=== PATIENT | female | born 1955 | race African-American/Black ===

== ENCOUNTER 2017-04-26 13:51 | Emergency (ER) | payer OTHER ==
--- NOTE | 2017-04-26 15:36 | RAD ---
THREE VIEWS SECOND TOE RIGHT FOOT: History: Trauma. FINDINGS: AP, lateral, and oblique views of the second digit, right foot, obtained. There is a small avulsion fracture involving the proximal dorsal aspect of the distal phalanx second digit. This extends into the articulating surface. IMPRESSION: Small avulsion fracture distal phalanx second digit right foot. POS: [facility]
== END 2017-04-26 15:10 | disposition home or self-care (01) ==
LOC: NAV ERS 13:51
DX: S92.531A Displaced fracture of distal phalanx of right lesser toe(s), initial encounter for closed fracture (principal); K21.9 Gastro-esophageal reflux disease without esophagitis; I10 Essential (primary) hypertension; F41.0 Panic disorder [episodic paroxysmal anxiety]; F17.210 Nicotine dependence, cigarettes, uncomplicated; Z79.899 Other long term (current) drug therapy; W22.03XA Walked into furniture, initial encounter

== ENCOUNTER 2017-05-30 12:05 | Outpatient (CLI) | payer OTHER ==
--- NOTE | 2017-05-30 13:35 | RAD ---
THREE VIEWS RIGHT SHOULDER: Comparison: None. History: Right shoulder pain, arthritis. FINDINGS: Three views of the right shoulder shows no evidence of acute fracture or dislocation. No degenerativ e changes are seen. No soft tissue swelling is present. There is an anastomotic staple line overlyin g the right upper lobe likely from prior lung surgery. IMPRESSION: No significant right shoulder abnormality. POS: [facility]
== END 2017-05-30 12:06 | disposition home or self-care (01) ==
LOC: NAV RAD 12:05
PROVIDERS: ATTEND Family Medicine
DX: M25.511 Pain in right shoulder (principal)

== ENCOUNTER 2017-06-05 12:07 | Outpatient (CLI) | payer OTHER ==
--- NOTE | 2017-06-05 14:28 | RAD ---
CERVICAL SPINE THREE VIEWS: Date: 06-05-17 History: Neck pain with radicular symptoms. Pain extends into the right shoulder. FINDINGS: C1 to C7 vertebral body seen on the lateral view. Cervicothoracic junction is not well imaged. Multi level degenerative changes are seen with osteophytes seen at multiple levels and intervertebral disc spaces at all levels. No obvious fracture or subluxation is seen from C1 to C7. Prevertebral soft t issues are within normal limits. Visualized lung apices demonstrate radiopaque suture material in th e bilateral upper lobes as well as a left subclavian Mediport catheter. Degenerative changes in the cervical spine have slightly progressed from prior study on 02-16-04. IMPRESSION: 1. Nonvisualization of the cervicothoracic junction. No fracture or subluxation is seen from C1 to C 7. 2. Multilevel degenerative changes. POS: [facility]
== END 2017-06-05 12:08 | disposition home or self-care (01) ==
LOC: NAV RAD 12:07
PROVIDERS: ATTEND Family Medicine
DX: M54.2 Cervicalgia (principal); M47.812 Spondylosis without myelopathy or radiculopathy, cervical region
CPT/HCPCS: 72040

== ENCOUNTER 2017-07-09 15:30 | Emergency (ER) | payer OTHER ==
[2017-07-09] MEDS ORDERED: Ketorolac Tromethamine 60 MG/2 ML VIAL ONE (15:50)
[2017-07-09] MEDS ORDERED: HYDROcodone/Acetaminophen 10/325 mg Tablet ONE (16:01)
== END 2017-07-09 16:04 | disposition home or self-care (01) ==
LOC: NAV ERS 15:30
DX: K02.9 Dental caries, unspecified (principal)
CPT/HCPCS: 96372; J1885

== ENCOUNTER 2017-07-27 12:07 | Emergency (ER) | payer OTHER ==
[2017-07-27] MEDS ORDERED: Acetaminophen 325 MG TAB ONE (12:46)
--- NOTE | 2017-07-27 14:32 | CT ---
CERVICAL SPINE CT SCAN WITHOUT IV CONTRAST: HISTORY: A 61-year-old female with a history of lung cancer and worsening neck pain. COMPARISON: 11/26/11. FINDINGS: Extensive multilevel disk-osteophytosis with multilevel variable severity canal, lateral recess, and foraminal stenosis. At C2-C3, disk-osteophytosis with some mild ventral thecal sac and lateral recess stenosis and mild f oraminal stenosis. At C3-C4, there is disk-osteophytosis with more moderate central canal and left lateral recess stenos is and bilateral foraminal stenosis. At C4-5, there is diffuse disk-osteophytosis with moderate central canal and lateral recess stenosis and bilateral foraminal stenosis. C5-6, No evidence for acute fracture or facet dislocation. IMPRESSION: Fairly extensive multilevel disk-osteophytosis with variable severity of the central canal, lateral r ecess, and foraminal stenosis as above. No acute fracture or dislocation. Consider followup nonemer gent MRI for further assessment. POS: [facility]
== END 2017-07-27 14:19 | disposition home or self-care (01) ==
LOC: NAV ERS 12:07
DX: M54.12 Radiculopathy, cervical region (principal); K02.9 Dental caries, unspecified; K21.9 Gastro-esophageal reflux disease without esophagitis; I10 Essential (primary) hypertension; F41.9 Anxiety disorder, unspecified; F17.210 Nicotine dependence, cigarettes, uncomplicated
CPT/HCPCS: 72125

== ENCOUNTER 2017-09-20 01:25 | Emergency (ER) | payer OTHER | END 2017-09-20 01:46 | disposition home or self-care (01) | LOC: NAV ERS 01:25 | DX: K59.00 Constipation, unspecified (principal); K21.9 Gastro-esophageal reflux disease without esophagitis; I10 Essential (primary) hypertension; F10.10 Alcohol abuse, uncomplicated; F41.0 Panic disorder [episodic paroxysmal anxiety]; F17.210 Nicotine dependence, cigarettes, uncomplicated | CPT/HCPCS: 99283 ==

== ENCOUNTER 2018-09-17 10:59 | Emergency (ER) | payer OTHER ==
--- NOTE | 2018-09-17 11:59 | RAD ---
3 VIEWS RIGHT WRIST: Date: 09/17/18 HISTORY: Left wrist pain. Patient denies injury. FINDINGS: No acute fracture or dislocation is seen. There is a vertically oriented lucency within the distal le ft radial metaphysis, only seen on the PA projection and is likely related to the trabecular pattern. There is a corticated osseous density adjacent to the ulnar styloid process, likely related to remot e avulsion injury. Subcutaneous soft tissue swelling is seen at the dorsal aspect of the wrist. No ot her findings. IMPRESSION: 1. No acute osseous abnormality. 2. Subcutaneous soft tissue swelling dorsal aspect of left wrist. POS: [facility]
[2018-09-17] MEDS ORDERED: predniSONE 20 MG TAB ONE (12:00)
[2018-09-17 12:22] LABS: CRP (Inflammatory) 7.14 mg/dL (= or < 0.5); Uric Acid 6.6 mg/dL (2.6-6.0)
[2018-09-17 12:25] LABS: Anion Gap 16 mmol/L (10-20); BUN (Urea Nitrogen) 9 mg/dL (9.8-20.1); Calc. Creatinine Clearance 0 mL/min (70-130); Calcium 9.7 mg/dL (7.8-10.44); Carbon Dioxide 24 mmol/L (23-31); Chloride 106 mmol/L (98-107); Estimated GFR-MDRD 52; Glucose 93 mg/dL (80-115); Potassium 3.6 mmol/L (3.5-5.1); Sodium 142 mmol/L (136-145)
[2018-09-17 12:28] LABS: Band 1 % (5-11); Hemoglobin 12.5 g/dL (12.0-16.0); Lymphocytes 19 % (21-51); MDiff Complete? YES; Mean Corpuscular HGB CONC 33.8 g/dL (32.0-36.0); Mean Corpuscular Hemoglobin 29.7 pg (27.0-31.0); Mean Corpuscular Volume 87.9 fL (78.0-98.0); Mean Platelet Volume 6.6 fL (7.4-10.4); Monocytes 5 % (0-10); Neutrophil 71 % (42-75); Platelet Count 367 thou/uL (130-400); Platelet Morphology Comment Appears Adequate; RBC Distribution Width 11.1 % (11.5-14.5); Reactive Lymphocytes 4 % (0-10); Red Blood Cell (RBC) Count 4.22 mill/uL (4.20-5.40); Target Cells SLIGHT = 2-5 cells (100X) (0-1/hpf); White Blood Cell (WBC) Count 8.5 thou/uL (4.8-10.8)
== END 2018-09-17 12:40 | disposition home or self-care (01) ==
LOC: NAV ERS 10:59
DX: M25.532 Pain in left wrist (principal); K21.9 Gastro-esophageal reflux disease without esophagitis; I10 Essential (primary) hypertension; F41.0 Panic disorder [episodic paroxysmal anxiety]; F17.210 Nicotine dependence, cigarettes, uncomplicated; Z79.899 Other long term (current) drug therapy
CPT/HCPCS: 36415; 80048; 84550; 85025; 86140; J7506

== ENCOUNTER 2019-01-07 03:58 | Emergency (ER) | payer OTHER ==
[2019-01-07 05:11] LABS: PTT 30.8 SEC (22.9-36.1)
[2019-01-07 05:12] LABS: #Basophils 0.1 thou/uL (0.0-0.2); #Lymphocytes 5.9 thou/uL (1.20-3.40); #Monocytes 0.4 thou/uL (0.11-0.59); #Neutrophils 2.9 thou/uL (1.40-6.50); %Basophils 1.1 % (0.0-1.0); %Eosinophils 0.4 % (0.0-10.0); %Lymphocytes 63.2 % (21.0-51.0); %Monocytes 3.9 % (0.0-10.0); %Neutrophils 31.5 % (42.0-75.0); Hemoglobin 13.2 g/dL (12.0-16.0); Mean Corpuscular HGB CONC 32.4 g/dL (32.0-36.0); Mean Corpuscular Hemoglobin 28.9 pg (27.0-31.0); Mean Corpuscular Volume 89.1 fL (78.0-98.0); Mean Platelet Volume 5.8 fL (7.4-10.4); Platelet Count 357 thou/uL (130-400); RBC Distribution Width 11.9 % (11.5-14.5); Red Blood Cell (RBC) Count 4.58 mill/uL (4.20-5.40); White Blood Cell (WBC) Count 9.3 thou/uL (4.8-10.8)
[2019-01-07 05:14] LABS: ALT (SGPT) 14 U/L (8-55); AST (SGOT) 20 U/L (5-34); Albumin 4.4 g/dL (3.4-4.8); Alkaline Phosphatase 76 U/L (40-150); Anion Gap 17 mmol/L (10-20); BUN (Urea Nitrogen) 15 mg/dL (9.8-20.1); Bilirubin, Total 0.2 mg/dL (0.2-1.2); Calc. Creatinine Clearance 0 mL/min (70-130); Calcium 9.4 mg/dL (7.8-10.44); Chloride 99 mmol/L (98-107); Estimated GFR-MDRD 43; Globulin 2.8 g/dL (2.4-3.5); Glucose 107 mg/dL (80-115); Potassium 3.9 mmol/L (3.5-5.1); Protein, Total 7.2 g/dL (6.0-8.3); Sodium 132 mmol/L (136-145)
[2019-01-07 05:15] LABS: Acetaminophen Less than 6.0 mcg/mL (10.0-30.0); Alcohol Less than 10 mg/dL (Less than 10); CK (CPK) 68 U/L (29-168); Salicylate Less than 8.0 mg/dL (15.0-30.0)
[2019-01-07 05:24] LABS: Carbon Dioxide 20 mmol/L (23-31)
[2019-01-07 05:27] LABS: Bilirubin Negative (Negative); Blood, Urine Small (Negative); Clarity Clear (Clear); Glucose, Urine (Dipstick) Negative (Negative); Leukocyte Negative (Negative); Nitrite Negative (Negative); Protein, Urine (Dipstick) Negative (Neg-Trace); Urobilinogen 0.2 mg/dL (0.2-1.0); pH, Urine 5.5 (5.0-9.0)
[2019-01-07 05:38] LABS: Cocaine Metabolite Screen Detected (NotDetected); Crystals/HPF 1+ AMORPH URATES HPF (Negative); Phencyclidine (PCP) Not Detected (NotDetected); RBC/HPF 0-3 HPF (0-3); THC/Cannabinoid Screen Detected (NotDetected)
[2019-01-07 05:39] LABS: Amphetamine Not Detected (NotDetected); Barbiturates Screen Not Detected (NotDetected); Benzodiazepine Screen Not Detected (NotDetected); Medtox Control Line Valid? VALID (VALID); Methadone Not Detected (NotDetected); Methamphetamine Not Detected (NotDetected); Opiate Screen Detected (NotDetected); Oxycodone Screen Not Detected (NotDetected); Tricyclic Screen Not Detected (NotDetected)
[2019-01-07] MEDS ORDERED: Dexamethasone 20 MG/5 ML VIAL ONE (05:43)
--- NOTE | 2019-01-07 07:17 | CT ---
CT BRAIN WITHOUT CONTRAST: Date: 01/07/19 INDICATION: Altered mental status with right-sided temporal head pain. Patient also having weakness with inabilit y to stand and follow directions well. COMPARISON: Prior CT brain dated 11/26/11. FINDINGS: There is a mildly hyperdense nodule now present involving the cortex of the right parietal lobe with surrounding vasogenic edema measuring 1.2 cm. Additional focal regions of subcortical vasogenic edema are seen involving the left frontal lobe on image 22 of series 3, and portions of the right frontal lobe on image 17 of series 3. There is worsening hypodensity within the periventricular white matter suspicious for changes of worsening chronic small vessel white matter ischemic change. Septum pelluci dum and third ventricle are midline. Basilar cisterns are patent. Mastoid air cells are clear. Parana amy sinuses are clear. Skull is intact. IMPRESSION: 1. Findings highly suspicious for development of intracranial metastatic disease with associated vas ogenic edema. A follow-up MRI of the brain with and without contrast would be helpful for additional characterization. 2. Worsening moderate chronic small vessel white matter ischemic change. Findings called o Dr. De La Rosa at 0510 hours on 01/07/19. CODE CR. POS:
== END 2019-01-07 06:31 | disposition short-term general hospital (02) ==
LOC: NAV ERS 03:58
DX: C79.31 Secondary malignant neoplasm of brain (principal); F41.0 Panic disorder [episodic paroxysmal anxiety]; I10 Essential (primary) hypertension; K21.9 Gastro-esophageal reflux disease without esophagitis; F17.210 Nicotine dependence, cigarettes, uncomplicated; Z79.899 Other long term (current) drug therapy
CPT/HCPCS: 70450; 80053; 80306; 80307; 81003; 81015; 82550; 84443; 84484; 85025; 85610; 85730; 93005; 96374; A4353; J1100

== ENCOUNTER 2020-02-02 15:59 | Outpatient (CLI) | payer OTHER ==
--- NOTE | 2020-02-02 17:01 | RAD ---
XR Shoulder Lt 3 View STANDARD: 02/02/2020 4:14 PM CLINICAL INDICATION: Left shoulder pain. COMPARISON: None. FINDINGS: Bones: No acute fracture. Glenohumeral joint: Normal alignment. AC joint: Normal alignment. Visualized lung: There is postprocedural change of a partial left upper lobe pneumonectomy. The lung is otherwise clear. Soft tissues: Within normal limits. IMPRESSION: No acute osseous abnormality.
== END 2020-02-02 16:00 | disposition home or self-care (01) ==
LOC: NAV RAD 15:59
PROVIDERS: ATTEND Family Medicine
DX: M25.512 Pain in left shoulder (principal)

== ENCOUNTER 2020-07-30 21:28 | Emergency (ER) | payer OTHER ==
[2020-07-30] MEDS ORDERED: Morphine 2 MG/ML SYRINGE ONE (21:57)
[2020-07-30] MEDS ORDERED: Ondansetron ODT 4 MG TAB ONE (21:58)
== END 2020-07-30 22:56 | disposition home or self-care (01) ==
LOC: NAV ERS 21:28
DX: M25.522 Pain in left elbow (principal); M25.512 Pain in left shoulder; T45.1X5A Adverse effect of antineoplastic and immunosuppressive drugs, initial encounter; C34.90 Malignant neoplasm of unspecified part of unspecified bronchus or lung; C76.42 Malignant neoplasm of left upper limb; K21.9 Gastro-esophageal reflux disease without esophagitis; I10 Essential (primary) hypertension; F17.210 Nicotine dependence, cigarettes, uncomplicated; Z79.899 Other long term (current) drug therapy; Z79.891 Long term (current) use of opiate analgesic
CPT/HCPCS: 96372; 99283; J2270; Q0162